=== PATIENT | male | born 1960 | race Hispanic/Latino ===

== ENCOUNTER 2021-11-08 22:39 | Emergency (ER) | payer MEDICARE | END 2021-11-10 10:15 | disposition left against medical advice (07) | LOC: ED 22:39 | DX: S27.309A Unspecified injury of lung, unspecified, initial encounter (principal); S22.39XA Fracture of one rib, unspecified side, initial encounter for closed fracture; Z53.21 Procedure and treatment not carried out due to patient leaving prior to being seen by health care provider; X58.XXXA Exposure to other specified factors, initial encounter; Y93.89 Activity, other specified; Y92.89 Other specified places as the place of occurrence of the external cause; Y99.8 Other external cause status ==